=== PATIENT | female | born 1940 | race Caucasian/White ===

== ENCOUNTER 2020-01-13 09:18 | Inpatient (IN) ==
[2020-01-13] MEDS ORDERED: SODIUM CHLORIDE 0.9% 1,000 ML IV STA (09:52)
[2020-01-13 10:15] LABS: Apearance,Urine CLEAR (Clear); Bacteria,Urine Occasional /HPF (Few); Bilirubin,Urine Negative (Negative); Blood, Urine Negative (Negative); Glucose,Urine (UA) Negative (Negative); Ketones,Urine 5 mg/dL (Negative); Mucus,Urine Moderate /LPF (Occasional); Nitrite,Urine Negative (Negative); Protein,Urine 30 MG/DL; RBC,Urine 1 /HPF (0-4); Squamous Epithelial Cell,Urine Occasional /HPF (0-10); Urine Color Amber (Yellow); Urine Specific Gravity 1.024 (1.001-1.035); WBC,Urine 9 /HPF (0-6)
[2020-01-13 10:27] LABS: Alanine Aminotransferase 31 U/L (13-56); Albumin 2.6 G/DL (3.4-5.0); Alkaline Phosphatase 71 U/L (45-117); Aspartate Amino Transferase 56 U/L (0-37); Blood Urea Nitrogen 23 MG/DL (7-18); Estimated Glom Filtration Rate 68 ML/MIN; Ferritin 699.6 ng/ml (8-252); Glucose 157 MG/DL (74-106); Osmolality,Calculated 274.2 MOS/KG (273-304); Total Protein 6.7 G/DL (6.4-8.3); Troponin I < 0.015 NG/ML (0.00-0.045)
[2020-01-13 10:31] LABS: Basophils % 0.2 % (0.0-0.8); Hematocrit 39.6 VOL% (35.7-47.0); Hemoglobin 12.7 GM/DL (12.0-16.0); Immature Granulocytes % 0.3 %; Immature Granulocytes Absolute 0.03 #; Lymphocytes # 0.6 10*3/uL (1.4-4.0); Lymphocytes % 5.4 % (21.3-54.2); Mean Corpuscular HGB Conc 32.1 GM/DL (32-36); Mean Corpuscular Volume 96.4 FL (87-102); Mean Platelet Volume 10.6 FL (9.6-12.0); Monocytes % 7.9 % (1.7-12.7); Neutrophils % 86.2 % (38.7-73.9); Platelet Count 219 T/CUMM (130-400); Red Blood Count 4.11 MC/CUMM (3.8-5.5); Red Cell Distribution Width 12.3 % (9.3-17.3); White Blood Count 10.7 T/CUMM (4-12)
[2020-01-13] MEDS ORDERED: AZITHROMYCIN INJ 500 MG in SODIUM CHLORIDE 0.9% 250 ML IV STA (10:33)
[2020-01-13] MEDS ORDERED: MORPHINE 4 MG/1 ML VIAL IV PRN (12:15)
[2020-01-13] MEDS ORDERED: ONDANSETRON 4 MG/2 ML VIAL IV PRN (12:15)
[2020-01-13] MEDS ORDERED: guaiFENesin/DM ER 600-30 MG TABLET PO PRN (12:15)
[2020-01-13] MEDS ORDERED: LACTULOSE 20 GM/30 ML UDCUP PO PRN (12:15)
[2020-01-13] MEDS ORDERED: DOCUSATE SODIUM 100 MG CAPSULE PO PRN (12:15)
[2020-01-13] MEDS ORDERED: GLUCAGON 1 MG VIAL IM PRN (12:15)
[2020-01-13] MEDS ORDERED: DEXTROSE 10% 250 ML BAG IV PRN (12:15)
[2020-01-13] MEDS: VANCOMYCIN INJ 1,000 MG in SODIUM CHLORIDE 0.9% 250 ML IV SCH (14:16)
[2020-01-13] MEDS: ENOXAPARIN 40 MG/0.4 ML SYRINGE SUBCUT SCH (14:16)
[2020-01-14 05:33] LABS: Basophils % 0.3 % (0.0-0.8); Hematocrit 33.4 VOL% (35.7-47.0); Immature Granulocytes % 0.5 %; Immature Granulocytes Absolute 0.04 #; Lymphocytes % 12.2 % (21.3-54.2); Mean Corpuscular HGB Conc 31.7 GM/DL (32-36); Mean Corpuscular Volume 97.7 FL (87-102); Mean Platelet Volume 10.8 FL (9.6-12.0); Monocytes % 7.5 % (1.7-12.7); Neutrophils % 79.5 % (38.7-73.9); Platelet Count 221 T/CUMM (130-400); Red Blood Count 3.42 MC/CUMM (3.8-5.5); Red Cell Distribution Width 12.5 % (9.3-17.3); White Blood Count 7.9 T/CUMM (4-12)
[2020-01-14 05:46] LABS: Hemoglobin 10.6 GM/DL (12.0-16.0)
[2020-01-14 05:59] LABS: Albumin 2.3 G/DL (3.4-5.0); Bilirubin,Total 0.9 MG/DL (0.2-1.0); Calcium 8.3 MG/DL (8.5-10.1); Osmolality,Calculated 282.3 MOS/KG (273-304); Thyroid Stimulating Hormone 2.03 uIU/ml (0.358-3.74); Total Protein 5.6 G/DL (6.4-8.3)
[2020-01-14] MEDS ORDERED: POTASSIUM CHLORIDE 20 MEQ TABLET PO SCH (09:11)
[2020-01-14] MEDS ORDERED: POTASSIUM CHLORIDE IV ONE (10:00)
[2020-01-14] MEDS ORDERED: POTASSIUM CHLORIDE INJ 40 MEQ in SODIUM CHLORIDE 0.9% 500 ML IV ONE (10:00)
[2020-01-14] MEDS ORDERED: SODIUM CHLORIDE 0.9% IV ONE (10:00)
[2020-01-14] MEDS: VANCOMYCIN INJ 1,000 MG in SODIUM CHLORIDE 0.9% 250 ML IV SCH (13:42)
[2020-01-14] MEDS: ENOXAPARIN 40 MG/0.4 ML SYRINGE SUBCUT SCH (13:43)
[2020-01-14] MEDS: PIPERACILLIN/TAZOBACTAM 3,375 MG in SODIUM CHLORIDE 0.9% 100 ML IV SCH ×2 (15:02→18:10)
[2020-01-15] MEDS: PIPERACILLIN/TAZOBACTAM 3,375 MG in SODIUM CHLORIDE 0.9% 100 ML IV SCH ×3 (02:03→18:37)
[2020-01-15 05:12] LABS: Basophils % 0.3 % (0.0-0.8); Hematocrit 34.1 VOL% (35.7-47.0); Hemoglobin 10.7 GM/DL (12.0-16.0); Immature Granulocytes % 0.5 %; Immature Granulocytes Absolute 0.04 #; Lymphocytes # 0.8 10*3/uL (1.4-4.0); Lymphocytes % 10.1 % (21.3-54.2); Mean Corpuscular HGB Conc 31.4 GM/DL (32-36); Mean Corpuscular Volume 97.7 FL (87-102); Mean Platelet Volume 10.3 FL (9.6-12.0); Monocytes % 5.9 % (1.7-12.7); Neutrophils % 83.2 % (38.7-73.9); Platelet Count 301 T/CUMM (130-400); Red Blood Count 3.49 MC/CUMM (3.8-5.5); Red Cell Distribution Width 12.3 % (9.3-17.3); White Blood Count 7.8 T/CUMM (4-12)
[2020-01-15 05:40] LABS: Albumin 2.4 G/DL (3.4-5.0); Bilirubin,Total 0.9 MG/DL (0.2-1.0); Calcium 8.3 MG/DL (8.5-10.1); Total Protein 5.9 G/DL (6.4-8.3)
[2020-01-15] MEDS: MULTIVITAMIN (CENTRUM) TABLET PO SCH (09:35)
[2020-01-15] MEDS: ENOXAPARIN 40 MG/0.4 ML SYRINGE SUBCUT SCH (13:00)
[2020-01-16] MEDS: PIPERACILLIN/TAZOBACTAM 3,375 MG in SODIUM CHLORIDE 0.9% 100 ML IV SCH ×3 (02:15→17:41)
[2020-01-16 08:31] LABS: Calcium 8.6 MG/DL (8.5-10.1); Osmolality,Calculated 281.1 MOS/KG (273-304); Risk Ratio 5.27; VLDL CHOLESTEROL 24.8 MG/DL
[2020-01-16] MEDS ORDERED: TUBERCULIN SKIN TEST 0.1 ML SYRINGE INTRADERM ONE (08:58)
[2020-01-16] MEDS: MULTIVITAMIN (CENTRUM) TABLET PO SCH (09:30)
[2020-01-16] MEDS: ENOXAPARIN 40 MG/0.4 ML SYRINGE SUBCUT SCH (17:40)
[2020-01-16 18:01] LABS: Basophils % 0.2 % (0.0-0.8); Hematocrit 36.8 VOL% (35.7-47.0); Hemoglobin 11.7 GM/DL (12.0-16.0); Immature Granulocytes % 0.4 %; Immature Granulocytes Absolute 0.03 #; Lymphocytes # 1.4 10*3/uL (1.4-4.0); Lymphocytes % 16.6 % (21.3-54.2); Mean Corpuscular HGB Conc 31.8 GM/DL (32-36); Mean Corpuscular Volume 97.1 FL (87-102); Mean Platelet Volume 10.4 FL (9.6-12.0); Monocytes % 7.2 % (1.7-12.7); Neutrophils % 75.6 % (38.7-73.9); Platelet Count 389 T/CUMM (130-400); Red Blood Count 3.79 MC/CUMM (3.8-5.5); Red Cell Distribution Width 12.3 % (9.3-17.3); White Blood Count 8.2 T/CUMM (4-12)
[2020-01-17] MEDS: PIPERACILLIN/TAZOBACTAM 3,375 MG in SODIUM CHLORIDE 0.9% 100 ML IV SCH ×3 (02:10→18:30)
[2020-01-17 06:33] LABS: Basophils % 0.3 % (0.0-0.8); Hematocrit 38.2 VOL% (35.7-47.0); Immature Granulocytes % 0.5 %; Immature Granulocytes Absolute 0.04 #; Lymphocytes # 0.9 10*3/uL (1.4-4.0); Lymphocytes % 11.9 % (21.3-54.2); Mean Corpuscular HGB Conc 31.4 GM/DL (32-36); Mean Corpuscular Volume 97.9 FL (87-102); Mean Platelet Volume 10.9 FL (9.6-12.0); Neutrophils % 80.3 % (38.7-73.9); Platelet Count 370 T/CUMM (130-400); White Blood Count 7.6 T/CUMM (4-12)
[2020-01-17 06:54] LABS: Calcium 8.8 MG/DL (8.5-10.1); Osmolality,Calculated 288.7 MOS/KG (273-304)
[2020-01-17] MEDS: POTASSIUM CHLORIDE 20 MEQ TABLET PO SCH (10:26)
[2020-01-17] MEDS: MULTIVITAMIN (CENTRUM) TABLET PO SCH (10:26)
[2020-01-17] MEDS ORDERED: POTASSIUM CHLORIDE RIDER 10 MEQ in PREMIX 1 EACH IV ONE ×2 (10:48→15:54)
[2020-01-17] MEDS: ENOXAPARIN 40 MG/0.4 ML SYRINGE SUBCUT SCH (16:38)
[2020-01-18] MEDS: PIPERACILLIN/TAZOBACTAM 3,375 MG in SODIUM CHLORIDE 0.9% 100 ML IV SCH ×3 (02:24→19:07)
[2020-01-18 06:34] LABS: Calcium 8.8 MG/DL (8.5-10.1); Osmolality,Calculated 295.3 MOS/KG (273-304)
[2020-01-18] MEDS: MULTIVITAMIN (CENTRUM) TABLET PO SCH (09:56)
[2020-01-18] MEDS: POTASSIUM CHLORIDE 20 MEQ TABLET PO SCH (09:56)
[2020-01-18] MEDS: ENOXAPARIN 40 MG/0.4 ML SYRINGE SUBCUT SCH (14:50)
[2020-01-19] MEDS: PIPERACILLIN/TAZOBACTAM 3,375 MG in SODIUM CHLORIDE 0.9% 100 ML IV SCH ×2 (02:55→09:11)
[2020-01-19] MEDS: MULTIVITAMIN (CENTRUM) TABLET PO SCH (08:10)
[2020-01-19] MEDS: POTASSIUM CHLORIDE 20 MEQ TABLET PO SCH (08:11)
[2020-01-19] MEDS: POTASSIUM CHLORIDE RIDER 10 MEQ in PREMIX 1 EACH IV SCH ×4 (10:19→13:48)
[2020-01-19] MEDS ORDERED: POTASSIUM CHLORIDE 20 MEQ TABLET PO ONE (11:00)
[2020-01-19] MEDS: ENOXAPARIN 40 MG/0.4 ML SYRINGE SUBCUT SCH (13:55)
[2020-01-19] MEDS: CEFUROXIME 500 MG TABLET PO SCH (21:27)
[2020-01-20 07:40] VITALS: BP 143/89
[2020-01-20] MEDS: MULTIVITAMIN (CENTRUM) TABLET PO SCH (08:21)
[2020-01-20] MEDS: CEFUROXIME 500 MG TABLET PO SCH (08:21)
[2020-01-20] MEDS: POTASSIUM CHLORIDE 20 MEQ TABLET PO SCH (08:21)
== END 2020-01-20 08:50 | DRG 177 ==
LOC: EDUNIT# → N.ED 09:18 → N.EDINP 12:15 → SUATTDRO 12:15 → N.2E 12:55
PROVIDERS: ADMIT Internal Medicine; ATTEND Internal Medicine